=== PATIENT | male | born 1965 | race American Indian/Alaskan Native ===

== ENCOUNTER 2017-07-17 03:34 | Emergency (ER) | payer OTHER ==
--- NOTE | 2017-07-17 04:53 | C.PDOC ---
History Of Present Illness 52 y/o male is brought to the ED by ambulance for evaluation of public alcohol intoxication for an unknown duration. Patient admits to drinking earlier today. He shows no obvious signs of trauma/injury and has no other complaints at this time. Time Seen by Provider: 07/17/17 04:05 Chief Complaint (Nursing): Substance Abuse History Per: Patient, EMS History/Exam Limitations: intoxication Onset/Duration Of Symptoms: Hrs Current Symptoms Are (Timing): Still Present Suicide/Self Injury Attempted (Context): None Modifying Factor(s): Alcohol Associated Symptoms: denies: Suicidal Thoughts, Suicidal Plan Involuntary Hold By: None Recent travel outside of the [place]: No Additional History Per: Patient, EMS Past Medical History Reviewed: Historical Data, Nursing Documentation, Vital Signs Vital Signs: Last Vital Signs Temp 98 F 07/17/17 03:50 Pulse 81 07/17/17 03:50 Resp 20 07/17/17 03:50 BP 114/78 07/17/17 03:50 Pulse Ox 97 07/17/17 06:20 - Medical History PMH: HTN Surgical History: No Surg Hx Family History: States: Unknown Family Hx - Social History Hx Alcohol Use: Yes Hx Substance Use: No - Immunization History Hx Tetanus Toxoid Vaccination: No Hx Influenza Vaccination: No Hx Pneumococcal Vaccination: No Review Of Systems Psych: Positive for: Other (EtOH intoxication ) Physical Exam - Physical Exam Appears: Non-toxic, No Acute Distress, Other (visibly intoxicated ) Skin: Normal Color, Warm, Dry Head: Atraumatic, Normacephalic Eye(s): bilateral: Normal Inspection Oral Mucosa: Moist, Other (alcohol on breath ) Neck: Supple Chest: Symmetrical, No Deformity, No Tenderness Cardiovascular: Rhythm Regular Respiratory: No Accessory Muscle Use Extremity: Normal ROM, Capillary Refill (less than 2 seconds ) Neurological/Psych: Other (arousable to touch and verbal stimuli ) ED Course And Treatment O2 Sat by Pulse Oximetry: 97 (on RA) Pulse Ox Interpretation: Normal Progress Note: 0618: PT IS NOW AAO x3 in NAd, FULLY AMBULATORY IN ED AND REQUESTING TO LEAVE Reevaluation Time: 06:18 Reassessment Condition: Improved Disposition Counseled Patient/Family Regarding: Diagnosis, Need For Followup - Disposition Referrals: [facility] [Outside] Disposition: HOME/ ROUTINE Disposition Time: 06:19 Condition: STABLE Instructions: Alcohol Use - When Is Drinking a Problem? 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 - Scribe Statement The provider has reviewed the documentation as recorded by the Scribe (Aspen Keyes) All medical record entries made by the Scribe were at my direction and personally dictated by me. I have reviewed the chart and agree that the record accurately reflects my personal performance of the history, physical exam, medical decision making, and the department course for this patient. I have also personally directed, reviewed, and agree with the discharge instructions and disposition.
[2017-07-17 10:15] VITALS: BP 121/79; PULSE 82; RESP 18; TEMP 98.1; O2SAT 96
== END 2017-07-17 10:15 | disposition home or self-care (01) ==
LOC: C.ER 03:34
DX: F10.129 Alcohol abuse with intoxication, unspecified (principal); I10 Essential (primary) hypertension

== ENCOUNTER 2018-03-26 04:15 | Emergency (ER) | payer SELFPAY ==
[2018-03-26 04:44] VITALS: RESP 20
--- NOTE | 2018-03-26 04:46 | C.PDOC ---
History Of Present Illness Patient brought in via EMS after being found intoxicated in public. Patient admits to having some drinks with his friends and fell asleep on the stairs of the path station. Denies any physical complaints at this time. Time Seen by Provider: 03/26/18 04:45 Chief Complaint (Nursing): Substance Abuse History Per: Patient, EMS History/Exam Limitations: no limitations Onset/Duration Of Symptoms: Hrs Current Symptoms Are (Timing): Still Present Suicide/Self Injury Attempted (Context): None Modifying Factor(s): Alcohol Severity: None Pain Scale Rating Of: 0 Involuntary Hold By: None Recent travel outside of the [place]: No Past Medical History Reviewed: Historical Data, Nursing Documentation, Vital Signs Vital Signs: Last Vital Signs Temp 97.9 F 03/26/18 04:39 Pulse 74 03/26/18 04:39 Resp 20 03/26/18 04:39 BP 136/74 03/26/18 04:39 Pulse Ox 99 03/26/18 04:39 - Medical History PMH: HTN Surgical History: Pacemaker Family History: States: No Known Family Hx - Social History Hx Alcohol Use: Yes Hx Substance Use: No - Immunization History Hx Tetanus Toxoid Vaccination: No Hx Influenza Vaccination: Yes Hx Pneumococcal Vaccination: Yes Review Of Systems Constitutional: Negative for: Fever, Chills Cardiovascular: Negative for: Chest Pain, Palpitations Respiratory: Negative for: Cough, Shortness of Breath Gastrointestinal: Negative for: Nausea, Vomiting Neurological: Negative for: Weakness, Numbness Physical Exam - Physical Exam Appears: Non-toxic, Other (ETOH on breath, no sign of injury) Skin: Warm, Dry Head: Normacephalic Oral Mucosa: Moist Chest: Symmetrical, No Tenderness Cardiovascular: Rhythm Regular Respiratory: No Rales, No Rhonchi, No Wheezing Gastrointestinal/Abdominal: Soft, No Tenderness Extremity: Other (Moves all extremities) Neurological/Psych: Oriented x3 ED Course And Treatment O2 Sat by Pulse Oximetry: 99 (Room air) Pulse Ox Interpretation: Normal Disposition Counseled Patient/Family Regarding: Studies Performed, Diagnosis, Need For Followup - Disposition Referrals: [facility] [Outside] Disposition: HOME/ ROUTINE Disposition Time: 04:46 Condition: FAIR Instructions: Alcohol Abuse and Alcoholism (DC) Forms: [employer] (French) - Clinical Impression Clinical Impression: Alcohol intoxication - Scribe Statement The provider has reviewed the documentation as recorded by the Scribguanaco Damon All medical record entries made by the Scribguanaco were at my direction and personally dictated by me. I have reviewed the chart and agree that the record accurately reflects my personal performance of the history, physical exam, medical decision making, and the department course for this patient. I have also personally directed, reviewed, and agree with the discharge instructions and disposition. Physician Patient Turnover Patient Signed Over To: Rupali Prasad Handoff Comments: pending sobriety
[2018-03-26 06:27] VITALS: BP 130/69; PULSE 89; TEMP 98.2
[2018-03-26 06:55] VITALS: O2SAT 99
== END 2018-03-26 09:09 | disposition home or self-care (01) ==
LOC: C.ER 04:15 → MERGE 04:15 → C.ER 06:26
DX: F10.129 Alcohol abuse with intoxication, unspecified (principal)